=== PATIENT | female | born 1995 | race Caucasian/White ===

== ENCOUNTER 2017-04-01 14:41 | Emergency (ER) | payer OTHER ==
[2017-04-01 15:39] LABS: BASOPHIL 0.1 % (0-2); EOSINOPHIL 2.3 % (0-5); HCT 37.3 % (37.0-47.0); HGB 12.8 g/dl (12.5-16.0); LYMPHOCYTE 30.7 % (15-48); MCH 28.2 pg (25.0-31.0); MCHC 34.3 g/dL (32.0-36.0); MCV 82.2 fL (78.0-100.0); MONOCYTE 10.1 % (0-12); MPV 8.4 fL (6.0-9.5); NEUTROPHIL 56.8 % (41-80); PLT 302 K/uL (150-400); RBC 4.54 M/uL (4.20-5.40); RDW 12.8 % (11.5-14.0); WBC 7.3 K/uL (4.0-10.5)
[2017-04-01 15:56] LABS: LACTIC ACID 1.1 mmol/L (0.5-2.2)
[2017-04-01 15:58] LABS: ALBUMIN 4.4 g/dL (3.5-5.0); BILIRUBIN - TOTAL 0.3 mg/dL (0.1-1.0); CREATININE 0.8 mg/dL (0.5-1.0); POTASSIUM 3.9 mmol/L (3.5-5.1); TOTAL PROTEIN 7.4 g/dL (6.4-8.3)
[2017-04-01 16:06] LABS: BILIRUBIN NEGATIVE (NEGATIVE); BLOOD 3+ Ery/uL (NEGATIVE); CLARITY CLEAR (CLEAR); COLOR YELLOW (YELLOW); GLUCOSE (U) NORMAL (NORMAL); KETONE (U) NEGATIVE (NEGATIVE); LEUKOCYTES NEGATIVE Leu/uL (NEGATIVE); NITRITE NEGATIVE (NEGATIVE); PROTEIN NEGATIVE (NEGATIVE); SPECIFIC GRAVITY <=1.005 (1.001-1.030); UROBILINOGEN 0.2 mg/dL (0.2-1.0); pH 5.5 (5.0-9.0)
[2017-04-01 16:18] LABS: URINARY WBC RARE
[2017-04-01 16:19] LABS: BACTERIA TRACE; RENAL EPITHELIAL CELLS RARE; SQUAMOUS EPITHELIAL CELLS RARE
== END 2017-04-01 16:54 | disposition home or self-care (01) ==
LOC: FER 14:41
PROVIDERS: Emergency Medicine
DX: N83.201 Unspecified ovarian cyst, right side (principal)
CPT/HCPCS: 36415; 74000; 76830; 80053; 81001; 83605; 83690; 85025; 87088